=== PATIENT | male | born 1985 | race American Indian/Alaskan Native ===

== ENCOUNTER 2018-12-11 16:34 | Emergency (ER) | payer OTHER ==
--- NOTE | 2018-12-11 17:04 | Emergency Department Report ---
- General Chief complaint: Skin/Abscess/Foreign Body Stated complaint: BREAKOUT ON FACE Time Seen by Provider: 12/11/18 16:58 Source: patient Mode of arrival: Ambulatory Limitations: No Limitations - History of Present Illness Initial comments: This is a 33-year-old male nontoxic, well nourished in appearance, no acute signs of distress presents to the ED with c/o of chin pain with purulent drainage. They stated that this started 3 days ago. Patient stated that today the swelling has resolved after had some drainage. Patient denies any fever, chills, nausea, vomiting, chest pain, shortness of breath, headache, or stiff neck. Patient denies any allergies significant past medical history. MD complaint: abscess/boil -: days(s) (2) Severity: mild Severity scale (0 -10): 3 Quality: aching Consistency: constant Improves with: none Worsens with: none Context: none Associated symptoms: denies other symptoms Treatments Prior to Arrival: none - Related Data Previous Rx's Medication Instructions Recorded Last Taken Type Ibuprofen [Motrin] 600 mg PO Q8H PRN #20 tablet 12/11/18 Unknown Rx Sulfamethoxazole/Trimethoprim 1 each PO BID #14 tablet 12/11/18 Unknown Rx [Bactrim DS TAB] Allergies Allergy/AdvReac Type Severity Reaction Status Date / Time No Known Allergies Allergy Unverified 12/11/18 16:49 Abscess Boil HPI - HPI Chief Complaint: Skin/Abscess/Foreign Body Stated Complaint: BREAKOUT ON FACE Time Seen by Provider: 12/11/18 16:58 Home Medications: Previous Rx's Medication Instructions Recorded Last Taken Type Ibuprofen [Motrin] 600 mg PO Q8H PRN #20 tablet 12/11/18 Unknown Rx Sulfamethoxazole/Trimethoprim 1 each PO BID #14 tablet 12/11/18 Unknown Rx [Bactrim DS TAB] Allergies/Adverse Reactions: Allergies Allergy/AdvReac Type Severity Reaction Status Date / Time No Known Allergies Allergy Unverified 12/11/18 16:49 ED Review of Systems ROS: Stated complaint: BREAKOUT ON FACE Other details as noted in HPI Constitutional: denies: chills, fever Eyes: denies: eye pain, eye discharge, vision change ENT: denies: ear pain, throat pain Respiratory: denies: cough, shortness of breath, wheezing Cardiovascular: denies: chest pain, palpitations Endocrine: no symptoms reported Gastrointestinal: denies: abdominal pain, nausea, diarrhea Genitourinary: denies: urgency, dysuria Musculoskeletal: denies: back pain, joint swelling, arthralgia Skin: denies: rash, lesions Neurological: denies: headache, weakness, paresthesias Psychiatric: denies: anxiety, depression Hematological/Lymphatic: denies: easy bleeding, easy bruising ED Past Medical Hx - Past Medical History Previous Medical History?: No - Surgical History Past Surgical History?: No - Social History Smoking Status: Current Every Day Smoker Substance Use Type: Alcohol, Marijuana - Medications Home Medications: Home Medications Medication Instructions Recorded Confirmed Last Taken Type Ibuprofen [Motrin] 600 mg PO Q8H PRN #20 tablet 12/11/18 Unknown Rx Sulfamethoxazole/Trimethoprim 1 each PO BID #14 tablet 12/11/18 Unknown Rx [Bactrim DS TAB] ED Physical Exam - General Limitations: No Limitations General appearance: alert, in no apparent distress - Head Head exam: Present: atraumatic, normocephalic - Expanded Head Exam Expanded 1 - tenderness with dry purulent drainage noted with no induration or flutance noted. no swelling. - Eye Eye exam: Present: normal appearance - Neck Neck exam: Present: normal inspection, full ROM - Extremities Exam Extremities exam: Present: normal inspection, full ROM - Back Exam Back exam: Present: normal inspection, full ROM - Neurological Exam Neurological exam: Present: alert, oriented X3 - Psychiatric Psychiatric exam: Present: normal affect, normal mood - Skin Skin exam: Present: warm, dry, intact, normal color. Absent: rash ED Course Vital Signs 12/11/18 16:47 Temperature 98.1 F Pulse Rate 54 L Respiratory 18 Rate Blood Pressure 118/52 O2 Sat by Pulse 100 Oximetry - Reevaluation(s) Reevaluation #1: 12/11/18 17:05 Patient is speaking in full sentences with no signs of distress noted. ED Medical Decision Making - Medical Decision Making This is a 33-year-old male that presents with cellulitis. Patient is stable and was examined by me. There is no induration, fluctuance. No signs of abscess formation. The area has been outlined with a permanent marker and patient was instructed to observe symptoms of increased redness or swelling and to return to the ER if this does occur. I will discharge patient with Bactrim. Patient was referred to Follow-up with a primary care doctor in 3-5 days or if symptoms worsen and continue return to emergency room as soon as possible. At time of discharge, the patient does not seem toxic or ill in appearance. No acute signs of distress noted. Patient agrees to discharge treatment plan of care. No further questions noted by the patient. Critical care attestation.: If time is entered above; I have spent that time in minutes in the direct care of this critically ill patient, excluding procedure time. ED Disposition Clinical Impression: Folliculitis Cellulitis Qualifiers: Site of cellulitis: face Qualified Code(s): L03.211 - Cellulitis of face Disposition: DC-01 TO HOME OR SELFCARE Is pt being admited?: No Does the pt Need Aspirin: No Condition: Stable Instructions: Cellulitis (ED), Folliculitis (ED) Additional Instructions: Follow-up with a primary care doctor in 3-5 days or if symptoms worsen and co ntinue return to emergency room as soon as possible. Prescriptions: Ibuprofen [Motrin] 600 mg PO Q8H PRN #20 tablet PRN Reason: Pain Sulfamethoxazole/Trimethoprim [Bactrim DS TAB] 1 each PO BID #14 tablet Referrals: PRIMARY CAREMD [Referring] - 3-5 Days ELAINE HUTCHINS MD [Staff Physician] - 3-[address] [facility] [Outside] - 3-5 Days Forms: Work/School Release Form(ED)
== END 2018-12-11 17:17 | disposition home or self-care (01) ==
LOC: ED 16:34
CPT/HCPCS: 99282

== ENCOUNTER 2019-11-26 14:47 | Emergency (ER) | payer OTHER ==
[2019-11-26 14:59] VITALS: BP 129/49
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
[2019-11-26] MEDS ORDERED: ACETAMINOPHEN 325 MG TAB PO ONE (15:33)
[2019-11-26] MEDS ORDERED: ACETAMINOPHEN 325 MG TAB ONE (15:35)
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
[2019-11-26] MEDS ORDERED: HYDROcodone/ACETAMINOPHEN 5-325 MG TAB PO ONE (19:33)
[2019-11-26] MEDS ORDERED: IBUPROFEN 800 MG TAB PO ONE (19:33)
[2019-11-26] MEDS ORDERED: dexAMETHasone 20 MG/5 ML VIAL IM ONE (19:33)
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
== END 2019-11-26 20:30 | disposition home or self-care (01) ==
LOC: ED 14:47
DX: S16.1XXA Strain of muscle, fascia and tendon at neck level, initial encounter (principal); S46.912A Strain of unspecified muscle, fascia and tendon at shoulder and upper arm level, left arm, initial encounter; R51 Headache; Z79.899 Other long term (current) drug therapy; V49.49XA Driver injured in collision with other motor vehicles in traffic accident, initial encounter; Y93.89 Activity, other specified; Y92.410 Unspecified street and highway as the place of occurrence of the external cause; Y99.8 Other external cause status
CPT/HCPCS: 70450; 72125; 73030; 96372; 99284; J1100

== ENCOUNTER 2020-08-16 05:24 | Emergency (ER) | payer OTHER ==
[2020-08-16 05:31] VITALS: BP 115/76
--- NOTE | 2020-08-16 05:49 | XRay Report ---
LEFT HAND 3 VIEW INDICATION / CLINICAL INFORMATION: Left pinky deformity. COMPARISON: None available. FINDINGS: There is a dorsal dislocation of the little finger middle phalanx at the PIP joint. There is no appre ciable fracture. Remaining alignment appears normal. Signer Name: Mukesh Ortega MD Signed: 08/16/2020 5:45 AM Workstation Name: [id number]
[2020-08-16] MEDS ORDERED: ACETAMINOPHEN 500 MG TAB PO ONE (06:31)
[2020-08-16] MEDS ORDERED: IBUPROFEN 400 MG TAB PO ONE (06:31)
--- NOTE | 2020-08-16 06:32 | Emergency Department Report ---
Upper Extremity - HPI Chief Complaint: Extremity Injury, Upper Stated Complaint: LEFT SMALL FINGER PAIN/DEFORMITY Time Seen by Provider: 08/16/20 06:24 Upper Extremity: Left Little Finger Occurred When: Today Mechanism: Crush Severity: severe Symptoms: Yes Pain with Movement, Yes Deformity, Yes Limited Range of Movement, Yes Swelling, No Numbness, No Weakness, No Bruising/Ecchymosis, No Laceration or Abrasion Other History: Mr. Miles is a 35-year-old gentleman, who is right-hand dominant, currently on disability secondary to a right thigh injury, who [facility], who presents to the ER with an accidental injury to his left pinky, after he accidentally closed a door on his finger. He denies additional injuries and he denies additional complaints. His pain is sharp, throbbing and aching, increases with palpation, range of motion, and it decreases with rest, and his symptoms were improved with reduction of his pinky dislocation by myself in the emergency room, and subsequent application of a finger splint. ED Review of Systems ROS: Stated complaint: LEFT SMALL FINGER PAIN/DEFORMITY Other details as noted in HPI Constitutional: denies: fever Eyes: denies: eye discharge ENT: denies: epistaxis Respiratory: denies: cough Cardiovascular: denies: chest pain Gastrointestinal: denies: abdominal pain Musculoskeletal: arthralgia, myalgia Neurological: denies: weakness ED Past Medical Hx - Past Medical History Previous Medical History?: No - Surgical History Past Surgical History?: No - Social History Smoking Status: Never Smoker Substance Use Type: None - Medications Home Medications: Home Medications Medication Instructions Recorded Confirmed Last Taken Type Menthol/Camphor [[place] Dawn 1 applicatio TP QID PRN #1 tube 11/26/19 Unknown Rx Ointment] Acetaminophen [Non-Aspirin Extra 500 mg PO Q6HR PRN #30 tablet 08/16/20 Unknown Rx Strength] Ibuprofen [Motrin] 600 mg PO Q8H PRN #30 tablet 08/16/20 Unknown Rx Upper Extremity Exam - Exam General: Vital signs noted. No distress. Alert and acting appropriately. Head and Torso: No HEENT Abnormality, No Neck Tenderness, No Chest/Lungs Abnormality, No Abdominal Tenderness, No Back Tenderness Shoulder Exam: Yes Normal Range of Motion in Shoulder, No Shoulder Tenderness, No Clavicle Tenderness, No Shoulder Deformity, No AC Joint Tenderness Arm Exam: No Arm/Humerus Tenderness, No Arm Deformity Elbow: Yes Normal Range of Motion in Elbow, No Elbow Tenderness, No Elbow Deformity Forearm: No Forearm Tenderness, No Forearm Deformity, No Pain with Pronation, No Pain with Supination Wrist: Yes Normal ROM in Wrist, No Wrist Tenderness, No Wrist Deformity, No Snuffbox Tenderness, No Pain with Axial Thumb Compression Hand: Yes Hand Deformity (There is an obvious left fifth digit dislocation, otherwise, no hand deformity), Yes Digit Tenderness (There is left fifth digit tenderness), Yes Normal ROM in Digit(s) (Post reduction, pinky range of motion somewhat limited secondary to pain, but patient able to grossly flex and extend each digit in the left fifth pinky.), No Hand Tenderness, No Digit(s) Deformity, No Tendon Dysfunction CMS Exam: Yes Normal Distal Pulses, Yes Normal Capillary Refill, Yes Normal Distal Sensation, No Broken Skin ED Course Vital Signs 08/16/20 05:30 Temperature 98.3 F Pulse Rate 93 H Respiratory 18 Rate Blood Pressure 115/76 O2 Sat by Pulse 99 Oximetry - Orthopedic Joint Reduction Joint #1 Consent Obtained: verbal consent Time Out Performed: Yes Side: left Joint Reduction Location: finger Technique Used: direct manipulation Post-Reduction Neuro Exam: intact Post-Reduction Vascular Exam: intact Post Reduction X-Ray Obtained: No Post Reduction X-Ray Results: reduced Splint Applied: Yes Patient Tolerated Procedure: well ED Medical Decision Making - Radiology Data Radiology results: report reviewed, image reviewed - Medical Decision Making Print Report Referring Physician: ED FELA Patient Name: AMIE CARCAMO Date of : 1985 Sex: Male Report Date: 2020-08-16 Report Status: Finalized Findings [facility] [address] [place] [address] XRay Report Signed Patient: AMIE CARCAMO MR#: [id number] : 1985 Acct:[id number] Age/Sex: 35 / M ADM Date: 08/16/20 Loc: ED Attending Dr: Ordering Physician: ANGELITO CHAHAL MD Date of Service: 08/16/20 Procedure(s): XR hand 3+V LT Accession Number(s): [id number] cc: ED DOC, Fluoro Time In Minutes: LEFT HAND 3 VIEW INDICATION / CLINICAL INFORMATION: Left pinky deformity. COMPARISON: None available. FINDINGS: There is a dorsal dislocation of the little finger middle phalanx at the PIP joint. There is no appreciable fracture. Remaining alignment appears normal. Signer Name: Mukesh Ortega MD Signed: 08/16/2020 5:45 AM Workstation Name: [id number] Transcribed By: SAMMY Dictated By: Mukesh Ortega MD Electronically Authenticated By: Mukesh Ortega MD Signed Date/Time: 08/16/20544 DD/ 4 TD/TT: Vital Signs 08/16/20 05:30 Temperature 98.3 F Pulse Rate 93 H Respiratory 18 Rate Blood Pressure 115/76 O2 Sat by Pulse 99 Oximetry Differential diagnosis, including but not limited to: Left fifth digit dislocation at the middle phalanx/PIP joint Assessment and plan: 35-year-old gentleman with isolated middle phalanx dislocation, now reduced, neurovascularly intact in a splint. He is going to follow-up with orthopedics next week for his right thigh injury, he can follow- up for this as well. Return precautions are reviewed Critical care attestation.: If time is entered above; I have spent that time in minutes in the direct care of this critically ill patient, excluding procedure time. ED Disposition Clinical Impression: Dislocation of PIP joint of finger Qualifiers: Encounter type: initial encounter Qualified Code(s): S63.289A - Dislocation of proximal interphalangeal joint of unspecified finger, initial encounter Disposition: - TO HOME OR SELFCARE Is pt being admited?: No Does the pt Need Aspirin: No Condition: Stable Instructions: Finger Dislocation (ED) Additional Instructions: Please keep the finger splint in place. Do not remove the finger splint until cleared to do so by a hand doctor or orthopedist. Follow-up with an orthopedist within the next 5 to 7 days. Avoid heavy lifting and strenuous physical activities and repetitive range of motion with the left hand/pinky. Please return to the emergency room right away with new pain, worsening pain, migration of pain, projectile vomiting, change in mental status, confusion, inability to tolerate liquid feeds, new, worsened or different symptoms not present on the initial emergency room evaluation. Referrals: [facility] [Provider Group] - 3-5 Days
== END 2020-08-16 07:23 | disposition home or self-care (01) ==
LOC: ED 05:24
DX: S63.277A Dislocation of unspecified interphalangeal joint of left little finger, initial encounter (principal); Z79.899 Other long term (current) drug therapy; X58.XXXA Exposure to other specified factors, initial encounter; Y93.89 Activity, other specified; Y92.89 Other specified places as the place of occurrence of the external cause; Y99.8 Other external cause status

== ENCOUNTER 2021-09-26 14:51 | Emergency (ER) | payer SELFPAY ==
[2021-09-26 15:36] VITALS: BP 134/63
--- NOTE | 2021-09-26 15:48 | Emergency Department Report ---
ED General Adult HPI - General Chief complaint: Eye Problems Stated complaint: EYES RED BOTH JAWS SWOLLEN Time Seen by Provider: 09/26/21 15:38 Source: patient Mode of arrival: Ambulatory Limitations: No Limitations - History of Present Illness Initial comments: Patient is a 36-year-old male presents emergency room complaints of bilateral eye irritation and erythema that began 09/20/21. He states initially began in the left eye and then spread to the right eye. He denies any contact lens use. He denies anything getting into the eye that he is aware of. He states he has had frequent watering of the eyes. He states he went to [facility] a few days ago and was placed on Polytrim eyedrops but reports is not improving. He has not followed up with a rink rat. Patient states that he also began having bilateral scrotal swelling last night. He denies any fever, nausea, vomiting, diarrhea, chills, difficulty swallowing or difficulty breathing. No past medical history. No allergies to medications. - Related Data Previous Rx's Medication Instructions Recorded Last Taken Type Menthol/Camphor [[place] 1 applicatio TP QID PRN #1 tube 11/26/19 Unknown Rx Ointment] Acetaminophen [Non-Aspirin Extra 500 mg PO Q6HR PRN #30 tablet 08/16/20 Unknown Rx Strength] Ibuprofen [Motrin] 600 mg PO Q8H PRN #30 tablet 08/16/20 Unknown Rx Amoxicillin/Potassium Clav 1 each PO BID 10 Days #20 tablet 09/26/21 Unknown Rx [Augmentin 875-125 Tablet] Ibuprofen [Motrin 600 MG tab] 600 mg PO Q8H PRN #20 tablet 09/26/21 Unknown Rx Ketotifen Fumarate 1 drop OP BID #1 bottle 09/26/21 Unknown Rx Ofloxacin 0.3% [Ocuflox 0.3% opth] 1 drops OP QID 7 Days #1 bottle 09/26/21 Unknown Rx Allergies Allergy/AdvReac Type Severity Reaction Status Date / Time No Known Allergies Allergy Verified 11/26/19 14:55 ED Review of Systems ROS: Stated complaint: EYES RED BOTH JAWS SWOLLEN Other details as noted in HPI Comment: All other systems reviewed and negative ED Past Medical Hx - Past Medical History Previous Medical History?: No - Surgical History Past Surgical History?: No - Social History Smoking Status: Never Smoker Substance Use Type: None - Medications Home Medications: Home Medications Medication Instructions Recorded Confirmed Last Taken Type Menthol/Camphor [Ennis [place] 1 applicatio TP QID PRN #1 tube 11/26/19 Unknown Rx Ointment] Acetaminophen [Non-Aspirin Extra 500 mg PO Q6HR PRN #30 tablet 08/16/20 Unknown Rx Strength] Ibuprofen [Motrin] 600 mg PO Q8H PRN #30 tablet 08/16/20 Unknown Rx Amoxicillin/Potassium Clav 1 each PO BID 10 Days #20 tablet 09/26/21 Unknown Rx [Augmentin 875-125 Tablet] Ibuprofen [Motrin 600 MG tab] 600 mg PO Q8H PRN #20 tablet 09/26/21 Unknown Rx Ketotifen Fumarate 1 drop OP BID #1 bottle 09/26/21 Unknown Rx Ofloxacin 0.3% [Ocuflox 0.3% opth] 1 drops OP QID 7 Days #1 bottle 09/26/21 Unknown Rx ED Physical Exam - General Limitations: No Limitations General appearance: alert, in no apparent distress - Head Head exam: Present: atraumatic, normocephalic - Eye Eye exam: Present: PERRL, EOMI, conjunctival injection (bilateral). Absent: periorbital swelling, periorbital tenderness - ENT ENT exam: Present: mucous membranes moist, other (mild right sided parotid edema with ttp, no erythema or increased warmth ) - Neurological Exam Neurological exam: Present: alert, oriented X3 - Psychiatric Psychiatric exam: Present: normal affect, normal mood - Skin Skin exam: Present: warm, dry, intact ED Course Vital Signs 09/26/21 15:35 Temperature 97.9 F Pulse Rate 60 Respiratory 18 Rate Blood Pressure 134/63 O2 Sat by Pulse 100 Oximetry ED Medical Decision Making - Medical Decision Making Patient is a 36-year-old male presents emergency room complaints of bilateral eye irritation and erythema that began 09/20/21. He states initially began in the left eye and then spread to the right eye. He denies any contact lens use. He denies anything getting into the eye that he is aware of. He states he has had frequent watering of the eyes. He states he went to [facility] a few days ago and was placed on Polytrim eyedrops but reports is not improving. He has not followed up with a rink rat. Patient states that he also began having bilateral scrotal swelling last night. He denies any fever, nausea, vomi ting, diarrhea, chills, difficulty swallowing or difficulty breathing. No past medical history. No allergies to medications. Vitals are normal. On exammild right sided parotid edema with ttp, no erythema or increased warmth, bilateral conjunctival injection, EOMI, PERRLA, no periorbital edema or erythema. Examination appears consistent with conjunctivitis and mild parotiditis. Patient given prescription for medication. Patient will be referred to ophthalmology and ENT. Advised patient Please use medication as prescribed. Please separate using eyedrops by 1 hour. Please wash your hands frequently. Follow-up with an rink rat. Follow-up with a ear nose and throat doctor. Please suck on sour candy or lemon lozenges. May use a warm compress to the face. Return to emergency room for any new or worsening symptoms. Critical care attestation.: If time is entered above; I have spent that time in minutes in the direct care of this critically ill patient, excluding procedure time. ED Disposition Clinical Impression: Parotiditis Conjunctivitis Qualifiers: Conjunctivitis type: acute Acute conjunctivitis type: unspecified Laterality: bilateral Qualified Code(s): H10.33 - Unspecified acute conjunctivitis, bilateral Disposition: 01 HOME / SELF CARE / HOMELESS Is pt being admited?: No Does the pt Need Aspirin: No Condition: Stable Instructions: Salivary Gland Infection, Viral Conjunctivitis, Adult, Bacterial Conjunctivitis, Adult Additional Instructions: Please use medication as prescribed. Please separate using eyedrops by 1 hour. Please wash your hands frequently. Follow-up with an rink rat. Follow- up with a ear nose and throat doctor. Please suck on sour candy or lemon lozenges. May use a warm compress to the face. Return to emergency room for any new or worsening symptoms. Prescriptions: Amoxicillin/Potassium Clav [Augmentin 875-125 Tablet] 1 each PO BID 10 Days #20 tablet Ketotifen Fumarate 1 drop OP BID #1 bottle Ibuprofen [Motrin 600 MG tab] 600 mg PO Q8H PRN #20 tablet PRN Reason: Pain Ofloxacin 0.3% [Ocuflox 0.3% opth] 1 drops OP QID 7 Days #1 bottle Referrals: [facility] [Provider Group] - 3-5 Days NISHA KIMBROUGH MD [Staff Physician] - 3-5 Days NETTA BRAUN MD [Staff Physician] - 3-5 Days KAYLAH SALVADOR MD [Referring] - 3-5 Days Time of Disposition: 15:45 Print Language: AMHARIC
== END 2021-09-26 16:15 | disposition home or self-care (01) ==
LOC: ED 14:51
DX: K11.20 Sialoadenitis, unspecified (principal); H10.9 Unspecified conjunctivitis; Z79.899 Other long term (current) drug therapy
CPT/HCPCS: 99281